=== PATIENT | female | born 1955 | race Caucasian/White ===

== ENCOUNTER → 2018-05-14 | Outpatient (REF) | payer OTHER ==
[2018-05-14 17:43] LABS: BASO % 0.4 % (0.0-1.0); EOS # 0.2 10^3/uL (0.0-0.50); EOS % 2.9 % (0.0-3.0); HEMOGLOBIN 13.3 g/dl (12.0-15.5); IMMATURE GRANULOCYTE % 0.5 % (0-3.0); LYMPH # 1.2 10^3/uL (1.5-4.5); LYMPH % 21.3 % (24.0-44.0); MEAN CORPUSCULAR HEMOGLOBIN 29.4 pg (27.0-33.0); MEAN CORPUSCULAR HGB CONC 33.3 g/dl (32.0-36.5); MEAN CORPUSCULAR VOLUME 88.3 fl (80.0-96.0); MONO # 0.7 10^3/uL (0.0-0.8); MONO % 12.5 % (0.0-5.0); NEUTROPHILS # 3.5 10^3/uL (1.8-7.7); NEUTROPHILS % 62.4 % (36.0-66.0); PLATELET COUNT, AUTOMATED 254 10^3/uL (150-450); RED BLOOD COUNT 4.53 10^6/uL (4.00-5.40); WHITE BLOOD COUNT 5.6 10^3/uL (4.0-10.0)
[2018-05-14 17:43] LABS: C REACTIVE PROTEIN QUANTITATIV 0.78 MG/DL (0.00-0.30)
[2018-05-14 18:41] LABS: ERYTHROCYTE SEDIMENTATION RATE 29 mm/hr (0-30)
== END ==
LOC: M LABDRAW1 16:30
DX: M25.471 Effusion, right ankle (principal)

== ENCOUNTER → 2018-09-08 | Outpatient (REF) | payer MEDICARE, OTHER ==
[~2018-09-08] MED LIST: AMLO10TA5 PO; ASPI1TAB PO; CENTCHW4 PO; PRAM0.5T7 PO; PRAV10TA4 PO; VENL150T24 PO
[2018-09-08 16:58] LABS: HEMOGLOBIN A1c 9.4 %
== END ==
LOC: M SFHCCLAY 11:24
PROVIDERS: ATTEND Family Medicine
DX: R73.9 Hyperglycemia, unspecified (principal)
CPT/HCPCS: 83036; G0463

== ENCOUNTER → 2018-09-16 | Outpatient (REF) | payer MEDICARE, OTHER ==
[2018-09-16 17:42] LABS: ALT/SGPT 32 U/L (12-78); BILIRUBIN,TOTAL 0.3 MG/DL (0.2-1.0); BLOOD UREA NITROGEN 14 MG/DL (7-18); CALCIUM LEVEL 9.3 MG/DL (8.8-10.2); CARBON DIOXIDE LEVEL 27 MEQ/L (21-32); CHLORIDE LEVEL 102 MEQ/L (98-107); CHOLESTEROL LEVEL 302 MG/DL (<200); CHOLESTEROL RISK RATIO 8.882 (<5); CREATININE FOR GFR 0.71 MG/DL (0.55-1.30); GLOMERULAR FILTRATION RATE > 60.0 (>45); GLUCOSE, FASTING 208 MG/DL (70-100); HDL CHOLESTEROL 34 MG/DL (>40); LDL CHOLESTEROL 190 MG/DL (<100); NON-HDL-C 268 MG/DL; POTASSIUM SERUM 4.5 MEQ/L (3.5-5.1); SODIUM LEVEL 138 MEQ/L (136-145); TOTAL PROTEIN 7.4 GM/DL (6.4-8.2); TRIGLYCERIDES LEVEL 389 MG/DL (<150)
[2018-09-16 19:07] LABS: MAU/CREAT RATIO 83.1 MCG/MG (0.0-30.0)
== END ==
LOC: M SFHCCLAY 10:30
PROVIDERS: ATTEND Family Medicine
DX: E11.9 Type 2 diabetes mellitus without complications (principal)
CPT/HCPCS: 80053; 80061; 82043; G0463

== ENCOUNTER → 2018-09-21 | Outpatient (REF) | payer MEDICARE, OTHER ==
[2018-09-21 11:44] LABS: HEMATOCRIT 42.1 % (36.0-47.0); HEMOGLOBIN 13.9 g/dl (12.0-15.5); MEAN CORPUSCULAR VOLUME 87.7 fl (80.0-96.0); PLATELET COUNT, AUTOMATED 230 10^3/uL (150-450); WHITE BLOOD COUNT 4.1 10^3/uL (4.0-10.0)
== END ==
LOC: M SFHCCLAY 08:49
PROVIDERS: ATTEND Family Medicine
DX: Z01.818 Encounter for other preprocedural examination (principal); M25.571 Pain in right ankle and joints of right foot
CPT/HCPCS: 85027; 93005; G0463

== ENCOUNTER → 2018-12-11 | Outpatient (REF) | payer MEDICARE, OTHER ==
[~2018-12-11] MED LIST changes: +ANUC25SU PR; -ASPI1TAB PO; +ASPI81TA26 PO; +METF10004 PO; +PRAM1TAB7 PO; +VENL100T PO
[2018-12-11 12:04] LABS: HEMOGLOBIN A1c 7.2 %
[2018-12-11 12:12] LABS: MAU/CREAT RATIO 173.5 MCG/MG (0.0-30.0)
[2018-12-11 12:23] LABS: BLOOD UREA NITROGEN 14 MG/DL (7-18); CALCIUM LEVEL 8.9 MG/DL (8.8-10.2); CARBON DIOXIDE LEVEL 28 MEQ/L (21-32); CHLORIDE LEVEL 108 MEQ/L (98-107); CREATININE FOR GFR 0.62 MG/DL (0.55-1.30); GLOMERULAR FILTRATION RATE > 60.0 (>45); GLUCOSE, FASTING 140 MG/DL (70-100); POTASSIUM SERUM 4.2 MEQ/L (3.5-5.1); SODIUM LEVEL 140 MEQ/L (136-145)
== END ==
LOC: M SFHCCLAY 08:06
PROVIDERS: ATTEND Family Medicine
DX: E11.9 Type 2 diabetes mellitus without complications (principal)

== ENCOUNTER → 2018-12-18 | Outpatient (CLI) | payer MEDICARE, OTHER ==
[~2018-12-18] MED LIST changes: +GASTROGRAFIN SOLUTION 30ML (Q9963) As Ordered ONE; +ISOVUE-370 76% 100ML VIAL (Q9967) As Ordered ONE
--- NOTE | 2018-12-18 16:38 | REP ---
HISTORY: History of bowel carcinoma. COMPARISON: There are no prior CTs for comparison. CT portion of PET/CT 11/05/2017 from an outside institution was reviewed. That examination is not an exact comparison to today's standard chest CT with contrast. CONTRAST: 100 mL Isovue-370 There is no mediastinal or hilar adenopathy. There are no pleural or pericardial effusions. The imaged upper abdomen is within normal limits. The imaged osseous structures are within normal limits. Evaluation of the lung murphy shows two 6 mm sized nodules in the left lung base which may or may not have been present on the prior examination; since the exam was not a standard chest CT, it cannot be stated with certainty. No additional abnormal nodules, masses or opacities are present. IMPRESSION: Two 6 mm sized nodules in the left lower lobe as described above. According to the revised Raina Society criteria these nodules represent category 4A lesions for which three month CT examination of the chest with contrast is recommended with consideration made for followup PET/CT if clinically relevant. Electronically Signed by Luis Dailey DO 12/24/2018 02:37 P
--- NOTE | 2018-12-18 16:47 | REP ---
HISTORY: Followup bowel carcinoma. COMPARISON: There are no priors for comparison. Noncontrast enhanced abdominal CT as part of a PET/CT protocol obtained from an outside institution 11/05/2017 was reviewed. Once again, there is diffuse low density throughout the hepatic parenchyma consistent with fatty infiltration of the liver. There are no enhancing hepatic masses. The gallbladder, spleen, pancreas, adrenal glands and kidneys are essentially unchanged. There are three nonenhancing left renal cysts, which have increased slightly in size from the prior exam, but none of them have septations or abnormal enhancing nodules. The abdominal aorta and periaortic regions are within normal limits. There is no significant change in the appearance of the bowel loops or their mesenteries. There is no free fluid or free air. There is no evidence of an intraabdominal mass or adenopathy. CT PELVIS: The bowel loops and their mesenteries are essentially unchanged. There is no mass or adenopathy. There is no free fluid or free air. Bone window technique throughout the exam shows the osseous structures to be stable and intact. IMPRESSION: 1. There is fatty infiltration of the liver. 2. Simple Bosniak class I left renal cyst. 2. No evidence of acute intra-abdominal or intrapelvic disease. Electronically Signed by Luis Dailey DO 12/24/2018 02:37 P
== END ==
LOC: M RAD 12:51
PROVIDERS: ATTEND Nurse Practitioner Family
DX: K76.0 Fatty (change of) liver, not elsewhere classified (principal); N28.1 Cyst of kidney, acquired; R91.8 Other nonspecific abnormal finding of lung field
CPT/HCPCS: 71260; 74177; Q9963; Q9967

== ENCOUNTER 2019-01-20 10:20 | Day surgery (SDC) | payer MEDICARE, OTHER ==
[~2019-01-20] VITALS: Ht 162.6 cm; Wt 71.1 kg
[~2019-01-20 10:20] MED LIST changes: -GASTROGRAFIN SOLUTION 30ML (Q9963) As Ordered ONE; -ISOVUE-370 76% 100ML VIAL (Q9967) As Ordered ONE; +LIDOCAINE 2% INJ 100 MG/5 ML SDV (FOR ANES.) As Ordered ONE; +NS 1,000 ML IV ONE; +PROPOFOL 200 MG/20 ML VIAL As Ordered ONE
[2019-01-20] MEDS ORDERED: PROPOFOL 200 MG/20 ML VIAL As Ordered ONE (11:10)
[2019-01-20] MEDS ORDERED: LIDOCAINE 2% INJ 100 MG/5 ML SDV (FOR ANES.) As Ordered ONE (11:10)
--- NOTE | 2019-01-20 11:20 | ROOR ---
Patient Name: Heaven Zarate Procedure Date: 01/20/2019 11:00 AM Date of : 1955 Age: 63 Room: [facility] Gender: Female Note Status: Finalized Procedure: Colonoscopy Indications: High risk colon cancer surveillance: Personal history of colon cancer Providers: Diego Rendon DO Referring MD: Daphney BELTRAN DO Requesting Provider: Medicines: Propofol per Anesthesia Complications: No immediate complications. Procedure: Pre-Anesthesia Assessment: - Prior to the procedure, a History and Physical was performed, and patient medications and allergies were reviewed. The patient is competent. The risks and benefits of the procedure and the sedation options and risks were discussed with the patient. All questions were answered and informed consent was obtained. Patient identification and proposed procedure were verified by the physician, the nurse, the anesthesiologist and the drinking water technician in the endoscopy suite. Mental Status Examination: alert and oriented. Airway Examination: normal oropharyngeal airway and neck mobility. Respiratory Examination: clear to auscultation. CV Examination: normal. Prophylactic Antibiotics: The patient does not require prophylactic antibiotics. Prior Anticoagulants: The patient has taken no previous anticoagulant or antiplatelet agents. ASA Grade Assessment: II - A patient with mild systemic disease. After reviewing the risks and benefits, the patient was deemed in satisfactory condition to undergo the procedure. The anesthesia plan was to use monitored anesthesia care (MAC). Immediately prior to administration of medications, the patient was re-assessed for adequacy to receive sedatives. The heart rate, respiratory rate, oxygen saturations, blood pressure, adequacy of pulmonary ventilation, and response to care were monitored throughout the procedure. The physical status of the patient was re-assessed after the procedure. The Colonoscope was introduced through the anus and advanced to the cecum, identified by appendiceal orifice and ileocecal valve. The colonoscopy was performed without difficulty. The patient tolerated the procedure well. Findings: Hemorrhoids were found on perianal exam. The exam was otherwise without abnormality on direct and retroflexion views. Impression: - Hemorrhoids found on perianal exam. - The examination was otherwise normal on direct and retroflexion views. - No specimens collected. Recommendation: - Patient has a contact number available for emergencies. The signs and symptoms of potential delayed complications were discussed with the patient. Return to normal activities tomorrow. Written discharge instructions were provided to the patient. - Repeat colonoscopy in 5 years for surveillance. - Return to my office PRN. Diego Rendon DO 01/20/2019 11:20:11 AM Electronically signed by Diego Rendon DO Number of Addenda: 0 Note Initiated On: 01/20/2019 11:00 AM Estimated Blood Loss: Estimated blood loss: none.
[2019-01-20 11:48] VITALS: BP 126/73
== END 2019-01-20 11:50 | disposition home or self-care (01) ==
LOC: M OPP 10:20
PROVIDERS: ATTEND Surgery
DX: Z85.038 Personal history of other malignant neoplasm of large intestine (principal); Z86.010 Personal history of colon polyps; K64.9 Unspecified hemorrhoids; Z79.891 Long term (current) use of opiate analgesic; Z79.899 Other long term (current) drug therapy; Z92.21 Personal history of antineoplastic chemotherapy; Z92.3 Personal history of irradiation

== ENCOUNTER → 2019-03-24 | Outpatient (CLI) | payer MEDICARE, OTHER ==
[~2019-03-24] MED LIST changes: +ISOVUE-370 76% 100ML VIAL (Q9967) As Ordered ONE; -LIDOCAINE 2% INJ 100 MG/5 ML SDV (FOR ANES.) As Ordered ONE; -NS 1,000 ML IV ONE; -PROPOFOL 200 MG/20 ML VIAL As Ordered ONE
--- NOTE | 2019-03-24 18:42 | REP ---
CT chest with IV contrast: History: Anal carcinoma. Abnormal CT study. Comparison CT study December 18, 2018. CT contrast dose: 75 mL of intravenous Isovue [address] findings: There are three to four nodular densities in the left lower lobe posterolaterally, the largest of which measures 7 mm in greatest diameter today. This has enlarged somewhat since the December 18, 2018 study. There is a stable 6 mm nodule in the left lower lobe. Adjacent to this, there is a 4 mm nodule which is not apparent on the December 18, 2018 study and appears to be new. No other pulmonary nodule is appreciated. No hilar or mediastinal mass or adenopathy is seen. Vascular calcifications noted in the coronary artery distribution as before. There is moderate diffuse fatty infiltration of the liver. There are two left renal cysts visible. No adrenal lesion is seen. 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 Impression: There are three to four nodular densities in the left lower lobe. One of these is 7 mm in greatest diameter and appears larger than on the prior study. There is evidence of a new 4 mm nodule in the left lower lobe. These are of uncertain significance. Electronically Signed by Rafat Pisano MD 03/24/2019 09:13 P
== END ==
LOC: M RAD 11:54
PROVIDERS: ATTEND Nurse Practitioner Family
DX: R91.8 Other nonspecific abnormal finding of lung field (principal); Z85.048 Personal history of other malignant neoplasm of rectum, rectosigmoid junction, and anus
CPT/HCPCS: 36415; 71260; 80053; Q9967

== ENCOUNTER → 2019-04-06 | Outpatient (CLI) | payer MEDICARE, OTHER ==
[~2019-04-06] MED LIST changes: -ISOVUE-370 76% 100ML VIAL (Q9967) As Ordered ONE
--- NOTE | 2019-04-07 15:58 | REP ---
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 Abdomen, pelvis and upper thighs: The uptake in the anus appears to have increased. The standard uptake value today is 5.3. The standard uptake on 11/05/2017 there was 4.0. Additionally, there is diffuse soft tissue uptake in tissues anterior lateral lateral to the anus , not present previously. The standard uptake value in these para-anal areas is 3.7. This uptake is nonspecific and could be related to radiation therapy or could be physiologic. I note that the uptake in the colon diffusely is increased from prior studies. This is likely physiologic from muscular activity after radiotracer injection. On the prior studies there was a pararectal lymph node on the left. This lymph node is no longer identified on the study today. Uptake in the liver is again heterogeneous. This is not unusual. There are no focal hyper metabolic foci. This is unchanged. There are no other abdominal, pelvic or retroperitoneal foci, as previously. There are left renal cysts. This is unchanged. There is hepatic steatosis, unchanged. The stranding identified in the presacral soft tissues previously is less apparent today. There is no sacral hypermetabolic uptake. Chest: There is a borderline hypermetabolic focus in the left breast medial to the nipple with a standard uptake value of 2.3. This has not been present on the comparison studies . Correlation with mammography is recommended. There are no hypermetabolic foci in the chest, otherwise . Specifically there is no hypermetabolic uptake in the right hilus. Neck and supraclavicular areas: There are no hypermetabolic foci. This is unchanged. Impression: There is diffuse increased radiolabeling of the entire colon as a change from the prior studies. This is likely physiologic from muscular activity after radiotracer infusion. There is hypermetabolic uptake in the anus. The standard uptake value today is 5.3 and was 4.0 on 11/05/2017. Additionally, there is borderline hypermetabolic uptake in perianal soft tissues as an interval change. This is nonspecific and could be physiologic or could be related to radiation. However, tumor extension is not entirely discounted and attention to this finding on follow up studies is recommended. The left perianal lymph node identified previously has involuted and is no longer identified. There is a new borderline hypermetabolic focus in the left breast medial to the nipple with a standard uptake value of 2.3, not present previously. Correlation with mammography is recommended. The study is performed with 9.04 mCi of F 18 FDG. Electronically Signed by Diego Arroyo MD 04/07/2019 03:49 P
== END ==
LOC: M PLARAD 10:18
PROVIDERS: ATTEND Internal Medicine
DX: R91.8 Other nonspecific abnormal finding of lung field (principal); Z85.048 Personal history of other malignant neoplasm of rectum, rectosigmoid junction, and anus
CPT/HCPCS: 78815; A9552

== ENCOUNTER → 2019-04-20 | Outpatient (REF) | payer MEDICARE, OTHER ==
[~2019-04-20] MED LIST changes: +[UNRECOGNIZED DRUG - REMARK]
== END ==
LOC: M SFHCCLAY 10:36
PROVIDERS: ATTEND Family Medicine
DX: E11.9 Type 2 diabetes mellitus without complications (principal); Z53.8 Procedure and treatment not carried out for other reasons

== ENCOUNTER → 2019-05-04 | Outpatient (CLI) | payer MEDICARE, OTHER ==
[~2019-05-04] MED LIST changes: +LIDOCAINE 1% MDV 20ML VIAL As Ordered ONE
[2019-05-04 13:52] VITALS: BP 150/81
--- NOTE | 2019-05-04 15:41 | REP ---
POSTBIOPSY MAMMOGRAM LEFT BREAST: ML and CC views of the left breast performed following ultrasound guided biopsy of a suspicious appearing nodule in the lower inner left breast. Correlation made with prior mammogram from [facility] 04/14/2019. Metallic biopsy clip is seen in the nodule. Electronically Signed by Diego Bolden MD 05/04/2019 04:26 P
--- NOTE | 2019-05-04 15:52 | REP ---
ULTRASOUND LEFT BREAST: Real-time sonographic evaluation of the left breast performed to evaluate a nodule seen on recent mammogram at [facility] which was referred for ultrasound guided biopsy. There is a lobulated hypoechoic solid mass at 8 o'clock in the left breast corresponding to the mammographic abnormality. It measures 1.4 x 1.0 x 1.4 cm. Ultrasound guided biopsy will be performed. Electronically Signed by Diego Bolden MD 05/04/2019 04:26 P
--- NOTE | 2019-05-04 16:35 | REP ---
Ultrasound-guided left breast biopsy. The procedure was performed by SABINE Espinal, under the direct supervision of Dr. Bolden. The patient has a history of a lobulated hypoechoic solid mass at the 8 o'clock position measuring 1.4 x 1.0 x 1.4 cm. The risks and benefits of the procedure were explained to the patient and informed consent was obtained both verbally and written. Directly prior to the start of the procedure, a formal timeout was completed in the procedure room. The left breast mass was localized using ultrasound guidance. The skin was prepped and draped in a sterile fashion. 18 ml of 1% lidocaine was used as a local anesthetic. Using ultrasound guidance a 13-gauge suction assisted Mammotome needle was inserted and 6 core biopsy samples were obtained. A marker clip was placed at the biopsy site. The patient tolerated the procedure well and there were no immediate complications. After the appropriate monitored convalescence the patient was discharged from the department. Reviewed by SABINE Zamudio 05/04/2019 03:57 P Electronically Signed by Diego Bolden MD 05/04/2019 04:26 P
== END ==
LOC: M IRPRO 12:14
DX: C50.912 Malignant neoplasm of unspecified site of left female breast (principal)

== ENCOUNTER → 2019-06-22 | Outpatient (REF) | payer MEDICARE, OTHER ==
[~2019-06-22] MED LIST changes: -LIDOCAINE 1% MDV 20ML VIAL As Ordered ONE
[2019-06-22 16:19] LABS: BLOOD UREA NITROGEN 12 MG/DL (7-18); CALCIUM LEVEL 9.7 MG/DL (8.8-10.2); CARBON DIOXIDE LEVEL 28 MEQ/L (21-32); CHLORIDE LEVEL 104 MEQ/L (98-107); CREATININE FOR GFR 0.72 MG/DL (0.55-1.30); GLOMERULAR FILTRATION RATE > 60.0 (>45); GLUCOSE, FASTING 131 MG/DL (70-100); POTASSIUM SERUM 4.1 MEQ/L (3.5-5.1); SODIUM LEVEL 139 MEQ/L (136-145)
== END ==
LOC: M SFHCCLAY 10:07
PROVIDERS: ATTEND Family Medicine
DX: Z01.818 Encounter for other preprocedural examination (principal); I11.9 Hypertensive heart disease without heart failure; Z23 Encounter for immunization
CPT/HCPCS: 80048; 90670; 90682; 93005; G0463

== ENCOUNTER → 2019-07-12 | Outpatient (CLI) | payer MEDICARE, OTHER ==
[~2019-07-12] MED LIST changes: +PROHANCE 279.3MG/ML 15ML VIAL (A9576) As Ordered ONE
--- NOTE | 2019-07-13 10:02 | REP ---
MRI BILATERAL BREASTS WITH AND WITHOUT CONTRAST: HISTORY: Left breast cancer. COMPARISON: Mammogram 04/14/2019, 04/16/2019 and ultrasound 05/04/2019. TECHNIQUE: Multiple sequences obtained in the axial, coronal, and sagittal planes prior to and following the intravenous administration of 14 mL ProHance. Images are evaluated in the [employer] software including dynamic post IV gadolinium axial T1 fat sat images, subtraction images, color overlay images and MIP reconstruction images. There is mild to moderate fibroglandular tissue bilaterally. There is very mild background parenchymal enhancement. No significant cystic changes are seen. No significantly enlarged lymph nodes are seen in either axillary region. In the lower inner left breast there is a spiculated mass which is hypointense on T1-weighted images and hyperintense on T2-weighted images. There is type 3 enhancement with rapid enhancement and slow washout. Margins are spiculated. Measurements are approximately 1.6 x 1.7 x 1.9 cm. It is located approximately 6 cm in from the nipple. There is mild internal artifact from the biopsy clip. No other suspicious mass or morphologic abnormality is seen. IMPRESSION: BIRADS category 6 known left breast cancer. Spiculated left breast mass inferomedially demonstrates suspicious enhancement and irregular margins consistent with diagnosis of infiltrating ductal carcinoma, maximum diameter of the mass is 1.9 cm and it is located approximately 6 cm from the nipple. No other evidence of enhancing suspicious mass or morphologic abnormality. No adenopathy in either axillary region. Electronically Signed by Diego Bolden MD 07/13/2019 12:01 P
== END ==
LOC: M RAD 15:36
PROVIDERS: ATTEND Nurse Practitioner Family
DX: C50.912 Malignant neoplasm of unspecified site of left female breast (principal); Z17.0 Estrogen receptor positive status [ER+]; Z15.01 Genetic susceptibility to malignant neoplasm of breast; Z15.09 Genetic susceptibility to other malignant neoplasm
CPT/HCPCS: A9576; C8908

== ENCOUNTER → 2019-09-20 | Outpatient (REF) | payer MEDICARE, OTHER ==
[~2019-09-20] MED LIST changes: -PROHANCE 279.3MG/ML 15ML VIAL (A9576) As Ordered ONE
[2019-09-20 13:19] LABS: HEMATOCRIT 34.5 % (36.0-47.0); HEMOGLOBIN 10.8 g/dl (12.0-15.5); MEAN CORPUSCULAR HEMOGLOBIN 27.8 pg (27.0-33.0); MEAN CORPUSCULAR HGB CONC 31.3 g/dl (32.0-36.5); MEAN CORPUSCULAR VOLUME 88.7 fl (80.0-96.0); PLATELET COUNT, AUTOMATED 163 10^3/uL (150-450); RED BLOOD COUNT 3.89 10^6/uL (4.00-5.40)
[2019-09-20 14:18] LABS: LYMPHOCYTES 9 % (16-44); METAMYELOCYTES 2 % (0-0); MONOCYTES 9 % (0-5); NEUTROPHILS 77 % (28-66); PLATELET ESTIMATE NORMAL (NORMAL)
[2019-09-20 14:19] LABS: ANISOCYTOSIS 1+; POLYCHROMASIA 1+
== END ==
LOC: M SFHCCLAY 08:24
PROVIDERS: ATTEND Family Medicine
DX: K52.9 Noninfective gastroenteritis and colitis, unspecified (principal)
CPT/HCPCS: 85025; G0463

== ENCOUNTER → 2019-09-27 | Outpatient (REF) | payer MEDICARE, OTHER ==
[2019-09-27 16:20] LABS: BASO # 0.1 10^3/uL (0.0-0.2); BASO % 0.8 % (0.0-1.0); EOS % 0.2 % (0.0-3.0); HEMATOCRIT 36.4 % (36.0-47.0); HEMOGLOBIN 11.7 g/dl (12.0-15.5); LYMPH # 1.4 10^3/uL (1.5-5.0); MEAN CORPUSCULAR HEMOGLOBIN 28.6 pg (27.0-33.0); MEAN CORPUSCULAR HGB CONC 32.1 g/dl (32.0-36.5); MONO # 1.1 10^3/uL (0.0-0.8); NEUTROPHILS # 6.1 10^3/uL (1.5-8.5); NEUTROPHILS % 69.2 % (36.0-66.0); PLATELET COUNT, AUTOMATED 379 10^3/uL (150-450); RED BLOOD COUNT 4.09 10^6/uL (4.00-5.40); WHITE BLOOD COUNT 8.8 10^3/uL (4.0-10.0)
== END ==
LOC: M SFHCCLAY 11:50
PROVIDERS: ATTEND Family Medicine
DX: D72.829 Elevated white blood cell count, unspecified (principal)

== ENCOUNTER → 2019-10-28 | Outpatient (CLI) | payer MEDICARE, OTHER ==
--- NOTE | 2019-11-17 14:19 | DEXA ---
AP SPINE L1 - L4 1.171 -0.2 1.4 LT FEMUR TOTAL 0.959 -0.4 0.9 LT NECK 0.882 -1.1 0.4 RT FEMUR TOTAL 1.016 0.1 1.3 RT NECK 1.021 -0.1 1.4 TOTAL BODY TOTAL OTHER COMMENTS: Normal bone densitometry of the spine. Normal bone densitometry of the right hip. There is low bone density of the left hip. FOLLOW-UP: Recommendation for the next bone density exam: 2 years. SIMONE
== END ==
LOC: M WHC 12:57
PROVIDERS: ATTEND Internal Medicine Medical Oncology
DX: C50.912 Malignant neoplasm of unspecified site of left female breast (principal); Z17.0 Estrogen receptor positive status [ER+]; M85.852 Other specified disorders of bone density and structure, left thigh

== ENCOUNTER → 2019-12-06 | Outpatient (REF) | payer MEDICARE, OTHER ==
[2019-12-06 11:34] LABS: BASO % 0.9 % (0.0-1.0); EOS # 0.1 10^3/uL (0.0-0.5); EOS % 2.3 % (0.0-3.0); HEMATOCRIT 39.6 % (36.0-47.0); HEMOGLOBIN 13.2 g/dl (12.0-15.5); LYMPH # 1.2 10^3/uL (1.5-5.0); LYMPH % 27.4 % (24.0-44.0); MEAN CORPUSCULAR HEMOGLOBIN 28.4 pg (27.0-33.0); MEAN CORPUSCULAR HGB CONC 33.3 g/dl (32.0-36.5); MEAN CORPUSCULAR VOLUME 85.2 fl (80.0-96.0); MONO # 0.6 10^3/uL (0.0-0.8); MONO % 12.9 % (0.0-5.0); NEUTROPHILS # 2.5 10^3/uL (1.5-8.5); NEUTROPHILS % 56.3 % (36.0-66.0); PLATELET COUNT, AUTOMATED 264 10^3/uL (150-450); RED BLOOD COUNT 4.65 10^6/uL (4.00-5.40); WHITE BLOOD COUNT 4.4 10^3/uL (4.0-10.0)
[2019-12-06 11:41] LABS: ALBUMIN 3.9 GM/DL (3.2-5.2); ALT/SGPT 25 U/L (12-78); BILIRUBIN,TOTAL 0.3 MG/DL (0.2-1.0); BLOOD UREA NITROGEN 14 MG/DL (7-18); CALCIUM LEVEL 9.4 MG/DL (8.8-10.2); CARBON DIOXIDE LEVEL 28 MEQ/L (21-32); CHLORIDE LEVEL 102 MEQ/L (98-107); CREATININE FOR GFR 0.74 MG/DL (0.55-1.30); GLOMERULAR FILTRATION RATE > 60.0 (>45); GLUCOSE, FASTING 263 MG/DL (70-100); SODIUM LEVEL 136 MEQ/L (136-145); TOTAL PROTEIN 7.2 GM/DL (6.4-8.2)
== END ==
LOC: M LABDRAWC 11:08
PROVIDERS: ATTEND Nurse Practitioner Family
DX: C50.912 Malignant neoplasm of unspecified site of left female breast (principal)

== ENCOUNTER → 2020-01-25 | Outpatient (CLI) | payer MEDICARE, OTHER | LOC: M LABSMTC 11:41 | PROVIDERS: ATTEND Anesthesiology | DX: Z03.818 Encounter for observation for suspected exposure to other biological agents ruled out (principal) | CPT/HCPCS: C9803; U0003 ==

== ENCOUNTER → 2020-02-10 | Outpatient (CLI) | payer MEDICARE, OTHER ==
[~2020-02-10] MED LIST changes: +LETR2.5T2 PO
== END ==
LOC: M LABSMTC 10:24
PROVIDERS: ATTEND Anesthesiology
DX: Z03.818 Encounter for observation for suspected exposure to other biological agents ruled out (principal); Z11.59 Encounter for screening for other viral diseases
CPT/HCPCS: C9803; U0003

== ENCOUNTER 2020-02-14 13:57 | Day surgery (SDC) | payer MEDICARE, OTHER ==
[~2020-02-14] VITALS: Ht 162.6 cm; Wt 68.0 kg
[~2020-02-14 13:57] MED LIST changes: -AMLO10TA5 PO; +AMLO1TAB25 PO; +NS 1,000 ML IV ONE
[2020-02-14] MEDS ORDERED: propofoL 200 MG/20 ML VIAL As Ordered ONE (14:45)
[2020-02-14] MEDS ORDERED: LIDOCAINE 2% 100MG/5ML SDV (FOR ANES.) As Ordered ONE (14:45)
[2020-02-14] MEDS ORDERED: fentaNYL 100 MCG/2 ML INJECTION (J3010) As Ordered ONE (15:08)
[2020-02-14] MEDS ORDERED: ePHEDrine SULFATE 25 MG/5 ML(5MG/ML) SYRINGE As Ordered ONE (15:24)
--- NOTE | 2020-02-14 15:49 | ROOR ---
Patient Name: Heaven Zarate Procedure Date: 02/14/2020 3:06 PM Date of : 1955 Age: 64 Room: [facility] Gender: Female Note Status: Finalized Procedure: Upper GI endoscopy Indications: Epigastric abdominal pain Providers: Matteo Jaramillo MD Referring MD: Daphney BELTRAN DO Requesting Provider: Medicines: Monitored Anesthesia Care Complications: No immediate complications. Procedure: Pre-Anesthesia Assessment: - Prior to the procedure, a History and Physical was performed, and patient medications and allergies were reviewed. The patient is competent. The risks and benefits of the procedure and the sedation options and risks were discussed with the patient. All questions were answered and informed consent was obtained. Patient identification and proposed procedure were verified by the physician, the nurse and the anesthesiologist in the procedure room. Mental Status Examination: alert and oriented. Airway Examination: normal oropharyngeal airway and neck mobility. Respiratory Examination: clear to auscultation. CV Examination: normal. Prophylactic Antibiotics: The patient does not require prophylactic antibiotics. Prior Anticoagulants: The patient has taken no previous anticoagulant or antiplatelet agents. ASA Grade Assessment: II - A patient with mild systemic disease. After reviewing the risks and benefits, the patient was deemed in satisfactory condition to undergo the procedure. The anesthesia plan was to use monitored anesthesia care (MAC). Immediately prior to administration of medications, the patient was re-assessed for adequacy to receive sedatives. The heart rate, respiratory rate, oxygen saturations, blood pressure, adequacy of pulmonary ventilation, and response to care were monitored throughout the procedure. The physical status of the patient was re-assessed after the procedure. The Endoscope was introduced through the mouth, and advanced to the second part of duodenum. The upper GI endoscopy was accomplished without difficulty. The patient tolerated the procedure well. Findings: The examined esophagus was normal. The Z-line was regular and was found 38 cm from the incisors. Scattered moderate inflammation characterized by erosions, erythema, friability and granularity was found in the gastric body and in the gastric antrum. Biopsies were taken with a cold forceps for Helicobacter pylori testing. Verification of patient identification for the specimen was done by the physician and nurse using the patient's name, date and medical record number. Estimated blood loss was minimal. The duodenal bulb and second portion of the duodenum were normal. Biopsies for histology were taken with a cold forceps for evaluation of celiac disease. Impression: - Normal esophagus. - Z-line regular, 38 cm from the incisors. - Gastritis. Biopsied. - Normal duodenal bulb and second portion of the duodenum. Biopsied. Recommendation: - Patient has a contact number available for emergencies. The signs and symptoms of potential delayed complications were discussed with the patient. Return to normal activities tomorrow. Written discharge instructions were provided to the patient. - Resume previous diet. - Continue present medications. - Await pathology results. - Telephone GI clinic for pathology results in 2 weeks. - Return to primary care physician. Matteo Jaramillo MD Matteo Jaramillo MD 02/14/2020 3:49:20 PM Electronically signed by Matteo Jaramillo MD Number of Addenda: 0 Note Initiated On: 02/14/2020 3:06 PM Estimated Blood Loss: Estimated blood loss was minimal.
--- NOTE | 2020-02-14 15:54 | ROOR ---
Patient Name: Heaven Zarate Procedure Date: 02/14/2020 3:08 PM Date of : 1955 Age: 64 Room: [facility] Gender: Female Note Status: Finalized Procedure: Colonoscopy Indications: High risk colon cancer surveillance: Personal history of colon cancer Providers: Matteo Jaramillo MD Referring MD: Daphney BELTRAN DO Requesting Provider: Medicines: Monitored Anesthesia Care Complications: No immediate complications. Procedure: Pre-Anesthesia Assessment: - Prior to the procedure, a History and Physical was performed, and patient medications and allergies were reviewed. The patient is competent. The risks and benefits of the procedure and the sedation options and risks were discussed with the patient. All questions were answered and informed consent was obtained. Patient identification and proposed procedure were verified by the physician, the nurse and the anesthesiologist in the procedure room. Mental Status Examination: alert and oriented. Airway Examination: normal oropharyngeal airway and neck mobility. Respiratory Examination: clear to auscultation. CV Examination: normal. Prophylactic Antibiotics: The patient does not require prophylactic antibiotics. Prior Anticoagulants: The patient has taken no previous anticoagulant or antiplatelet agents. ASA Grade Assessment: II - A patient with mild systemic disease. After reviewing the risks and benefits, the patient was deemed in satisfactory condition to undergo the procedure. The anesthesia plan was to use monitored anesthesia care (MAC). Immediately prior to administration of medications, the patient was re-assessed for adequacy to receive sedatives. The heart rate, respiratory rate, oxygen saturations, blood pressure, adequacy of pulmonary ventilation, and response to care were monitored throughout the procedure. The physical status of the patient was re-assessed after the procedure. The Colonoscope was introduced through the anus and advanced to the terminal ileum, with identification of the appendiceal orifice and IC valve. The colonoscopy was performed without difficulty. The patient tolerated the procedure well. The quality of the bowel preparation was good. The terminal ileum, ileocecal valve, appendiceal orifice, and rectum were photographed. Scope insertion time was 5 minutes. Scope withdrawal time was 10 minutes. The total duration of the procedure was 15 minutes. Findings: Hemorrhoids were found on perianal exam. The colon (entire examined portion) was moderately tortuous. Advancing the scope required using manual pressure. A scattered area of mildly erythematous mucosa was found in the distal rectum. 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 A patchy area of granular mucosa was found in the distal rectum. Biopsies were taken with a cold forceps for histology. Verification of patient identification for the specimen was done by the physician and nurse using the patient's name, date and medical record number. Non-bleeding external and internal hemorrhoids were found during endoscopy. The hemorrhoids were large. Retroflexion in the rectum was not performed due to anatomy. Impression: - Hemorrhoids found on perianal exam. - Tortuous colon. - Erythematous mucosa in the distal rectum. - Granularity in the distal rectum. Biopsied. - Non-bleeding external and internal hemorrhoids. Recommendation: - Patient has a contact number available for emergencies. The signs and symptoms of potential delayed complications were discussed with the patient. Return to normal activities tomorrow. Written discharge instructions were provided to the patient. - High fiber diet. - Continue present medications. - Preparation H suppository: Insert rectally daily for 5 days. - Await pathology results. - Repeat colonoscopy in 5 years for surveillance based on personal history of colon cancer. - Telephone GI clinic for pathology results in 2 weeks. - Return to primary care physician. Matteo Jaramillo MD Matteo Jaramillo MD 02/14/2020 3:54:48 PM Electronically signed by Matteo Jaramillo MD Number of Addenda: 0 Note Initiated On: 02/14/2020 3:08 PM Estimated Blood Loss: Estimated blood loss was minimal.
[2020-02-14 16:24] VITALS: BP 166/86
== END 2020-02-14 16:26 | disposition home or self-care (01) ==
LOC: M OPP 13:57
PROVIDERS: ATTEND Internal Medicine Gastroenterology
DX: Z85.048 Personal history of other malignant neoplasm of rectum, rectosigmoid junction, and anus (principal); K64.8 Other hemorrhoids; K62.7 Radiation proctitis; R10.13 Epigastric pain; K31.89 Other diseases of stomach and duodenum; E11.9 Type 2 diabetes mellitus without complications; I10 Essential (primary) hypertension; Z79.82 Long term (current) use of aspirin; Z79.84 Long term (current) use of oral hypoglycemic drugs; Z79.899 Other long term (current) drug therapy; Z85.3 Personal history of malignant neoplasm of breast; Z92.21 Personal history of antineoplastic chemotherapy; Z08 Encounter for follow-up examination after completed treatment for malignant neoplasm
CPT/HCPCS: 43239; 45380; 88305; J3010

== ENCOUNTER → 2020-07-10 | Outpatient (REF) | payer MEDICARE, OTHER ==
[~2020-07-10] MED LIST changes: -NS 1,000 ML IV ONE
[2020-07-10 11:25] LABS: BASO % 0.6 % (0.0-1.0); EOS # 0.1 10^3/uL (0.0-0.5); EOS % 2.2 % (0.0-3.0); HEMATOCRIT 40.6 % (36.0-47.0); HEMOGLOBIN 12.9 g/dl (12.0-15.5); LYMPH # 1.5 10^3/uL (1.5-5.0); LYMPH % 29.4 % (24.0-44.0); MEAN CORPUSCULAR HEMOGLOBIN 27.6 pg (27.0-33.0); MEAN CORPUSCULAR HGB CONC 31.8 g/dl (32.0-36.5); MEAN CORPUSCULAR VOLUME 86.9 fl (80.0-96.0); MONO # 0.6 10^3/uL (0.0-0.8); MONO % 12.6 % (0.0-5.0); NEUTROPHILS # 2.8 10^3/uL (1.5-8.5); PLATELET COUNT, AUTOMATED 266 10^3/uL (150-450); RED BLOOD COUNT 4.67 10^6/uL (4.00-5.40); WHITE BLOOD COUNT 5.1 10^3/uL (4.0-10.0)
[2020-07-10 12:04] LABS: HEMOGLOBIN A1c 6.9 %
[2020-07-10 12:25] LABS: ALT/SGPT 21 U/L (12-78); BILIRUBIN,TOTAL 0.4 MG/DL (0.2-1.0); BLOOD UREA NITROGEN 14 MG/DL (7-18); CALCIUM LEVEL 9.4 MG/DL (8.8-10.2); CARBON DIOXIDE LEVEL 28 MEQ/L (21-32); CHLORIDE LEVEL 105 MEQ/L (98-107); CHOLESTEROL LEVEL 202 MG/DL (<200); CHOLESTEROL RISK RATIO 4.391 (<5); FREE T4 1.07 NG/DL (0.76-1.46); GLOMERULAR FILTRATION RATE > 60.0 (>45); GLUCOSE, FASTING 137 MG/DL (70-100); HDL CHOLESTEROL 46 MG/DL (>40); LDL CHOLESTEROL 100 MG/DL (<100); NON-HDL-C 156 MG/DL; POTASSIUM SERUM 3.9 MEQ/L (3.5-5.1); SODIUM LEVEL 138 MEQ/L (136-145); T UPTAKE 31 % (30-39); THYROXINE (T4) 9.6 UG/DL (4.5-12.0); TOTAL PROTEIN 7.6 GM/DL (6.4-8.2); TRIGLYCERIDES LEVEL 280 MG/DL (<150)
== END ==
LOC: M LABDRAWC 11:16
PROVIDERS: ATTEND Psychiatry & Neurology Neurology
DX: E11.9 Type 2 diabetes mellitus without complications (principal); E78.5 Hyperlipidemia, unspecified; E07.9 Disorder of thyroid, unspecified

== ENCOUNTER → 2021-02-01 | Outpatient (REF) | payer MEDICARE, OTHER ==
[2021-02-01 12:07] LABS: HEMATOCRIT 41.4 % (36.0-47.0); HEMOGLOBIN 13.6 g/dl (12.0-15.5); MEAN CORPUSCULAR HEMOGLOBIN 28.7 pg (27.0-33.0); MEAN CORPUSCULAR HGB CONC 32.9 g/dl (32.0-36.5); MEAN CORPUSCULAR VOLUME 87.3 fl (80.0-96.0); PLATELET COUNT, AUTOMATED 314 10^3/uL (150-450); RED BLOOD COUNT 4.74 10^6/uL (4.00-5.40)
[2021-02-01 12:50] LABS: BLOOD UREA NITROGEN 13 MG/DL (7-18); CALCIUM LEVEL 9.9 MG/DL (8.8-10.2); CARBON DIOXIDE LEVEL 29 MEQ/L (21-32); CHLORIDE LEVEL 103 MEQ/L (98-107); CHOLESTEROL LEVEL 209 MG/DL (<200); CHOLESTEROL RISK RATIO 4.976 (<5); CREATININE FOR GFR 0.65 MG/DL (0.55-1.30); GLOMERULAR FILTRATION RATE > 60.0 (>45); GLUCOSE, FASTING 177 MG/DL (70-100); HDL CHOLESTEROL 42 MG/DL (>40); LDL CHOLESTEROL 96 MG/DL (<100); NON-HDL-C 167 MG/DL; POTASSIUM SERUM 4.4 MEQ/L (3.5-5.1); SODIUM LEVEL 139 MEQ/L (136-145); TRIGLYCERIDES LEVEL 354 MG/DL (<150)
[2021-02-01 13:30] LABS: HEMOGLOBIN A1c 7.9 %
== END ==
LOC: M SFHCCLAY 09:11
PROVIDERS: ATTEND Family Medicine
DX: G25.81 Restless legs syndrome (principal); E11.9 Type 2 diabetes mellitus without complications

== ENCOUNTER 2021-03-06 09:58 | Emergency (ER) | payer MEDICARE, OTHER ==
[~2021-03-06] VITALS: Ht 162.6 cm; Wt 70.5 kg
[2021-03-06 11:30] LABS: BASO % 0.3 % (0.0-1.0); EOS # 0.1 10^3/uL (0.0-0.5); HEMATOCRIT 41.2 % (36.0-47.0); HEMOGLOBIN 13.7 g/dl (12.0-15.5); LYMPH # 1.3 10^3/uL (1.5-5.0); LYMPH % 16.7 % (24.0-44.0); MEAN CORPUSCULAR HEMOGLOBIN 28.4 pg (27.0-33.0); MEAN CORPUSCULAR HGB CONC 33.3 g/dl (32.0-36.5); MEAN CORPUSCULAR VOLUME 85.3 fl (80.0-96.0); MONO # 0.9 10^3/uL (0.0-0.8); MONO % 11.4 % (2.0-8.0); NEUTROPHILS # 5.6 10^3/uL (1.5-8.5); NEUTROPHILS % 70.1 % (36.0-66.0); PLATELET COUNT, AUTOMATED 306 10^3/uL (150-450); RED BLOOD COUNT 4.83 10^6/uL (4.00-5.40)
[2021-03-06] MEDS ORDERED: NS 1,000 ML IV ONE (11:45)
[2021-03-06] MEDS ORDERED: MORPHINE 4 MG/ML 1ML VIAL/SYRINGE (J2270) IV ONE (11:45)
[2021-03-06 11:59] LABS: ALBUMIN 4.2 GM/DL (3.2-5.2); ALT/SGPT 34 U/L (12-78); BILIRUBIN,DIRECT 0.1 MG/DL (0.0-0.2); BILIRUBIN,TOTAL 0.5 MG/DL (0.2-1.0); BLOOD UREA NITROGEN 12 MG/DL (7-18); CALCIUM LEVEL 9.7 MG/DL (8.8-10.2); CARBON DIOXIDE LEVEL 26 MEQ/L (21-32); CHLORIDE LEVEL 105 MEQ/L (98-107); CREATININE FOR GFR 0.74 MG/DL (0.55-1.30); GLOMERULAR FILTRATION RATE > 60.0 (>45); GLUCOSE, FASTING 179 MG/DL (70-100); LIPASE 182 U/L (73-393); POTASSIUM SERUM 4.1 MEQ/L (3.5-5.1); SODIUM LEVEL 138 MEQ/L (136-145); TOTAL PROTEIN 7.9 GM/DL (6.4-8.2)
[2021-03-06] MEDS ORDERED: ISOVUE-370 76% 100ML VIAL As Ordered ONE (12:13)
--- NOTE | 2021-03-06 12:56 | REP ---
INDICATION: left sided abd pain. COMPARISON: Comparison is made with outside prior CT study from September 13, 2019.. TECHNIQUE: Helical scanning was acquired and 4 mm axial images are re-formatted. Coronal and sagittal MPR images were generated and reviewed. The contrast enhancement dose is 100 mL of intravenous Isovue 370. FINDINGS: Preliminary digital hydrant setter radiograph is noncontributory. Normal bowel gas pattern. Bilateral breast augmentation implants are seen at the top of the imaging field of view. There is no evidence of pleural effusion on either side. The lung bases are clear on axial images. There is moderate diffuse fatty infiltration of the liver. No focal liver mass lesion is seen. No abnormality is noted in the gallbladder. The spleen is unremarkable. There is left coronary artery vascular calcification. Normal adrenal glands are seen. There are renal cortical cysts affecting the left kidney which are unchanged from the comparison CT study of September 13, 2019. No hydronephrosis or renal mass is seen. No calculus is apparent. There is a0 peripherally calcified lesion adjacent to the splenic tail consistent with a splenic artery aneurysm. This measures 1.5 cm in greatest diameter. It is unchanged from September 13, 2019 CT as well. No retroperitoneal mass or adenopathy is seen. No pelvic mass or adenopathy is appreciated. No uterine or ovarian abnormality is seen. Small and large bowel loops are unremarkable in the abdomen and pelvis. Normal appendix is seen in the right lower quadrant. There is a subtle zone of inflammation or edema in the pericolonic fat anteriorly adjacent to the mid descending colon. There is no mural thickening but there is an adjacent anteriorly directed descending colonic diverticulum. Findings are compatible with very mild or early diverticulitis. no abscess or free air is seen. No abnormal fluid collection. IMPRESSION: 9 there is some pericolonic fat streaking adjacent to the mid descending colon and within adjacent diverticulum consistent with early diverticulitis. No abscess or free air. There are stable left renal cysts. There is moderate diffuse fatty infiltration of the liver. Otherwise no active abdominal or pelvic disease. Patient is status post bilateral mastectomy and augmentation. <Electronically signed by Andi Pisano > 03/06/21 [id number]
[2021-03-06] MEDS ORDERED: CIPROFLOXACIN 500MG TABLET PO ONE (13:05)
[2021-03-06] MEDS ORDERED: metroNIDAZOLE (FLAGYL) 500MG TABLET PO ONE (13:05)
[2021-03-06] MEDS ORDERED: ONDA4TAB6 PO (13:06)
[2021-03-06] MEDS ORDERED: CIPR-249 PO (13:06)
[2021-03-06] MEDS ORDERED: FLAG500T PO (13:06)
[2021-03-06 13:16] VITALS: BP 147/70
== END 2021-03-06 13:17 | disposition home or self-care (01) ==
LOC: M ED 09:58
DX: K57.32 Diverticulitis of large intestine without perforation or abscess without bleeding (principal); N28.1 Cyst of kidney, acquired; K76.0 Fatty (change of) liver, not elsewhere classified; E66.9 Obesity, unspecified; E11.9 Type 2 diabetes mellitus without complications; I10 Essential (primary) hypertension; F41.9 Anxiety disorder, unspecified; F32.9 Major depressive disorder, single episode, unspecified; K52.9 Noninfective gastroenteritis and colitis, unspecified; M19.90 Unspecified osteoarthritis, unspecified site; Z85.3 Personal history of malignant neoplasm of breast; Z79.82 Long term (current) use of aspirin; Z79.899 Other long term (current) drug therapy
CPT/HCPCS: 74177; 80048; 80076; 83690; 85025; 96361; 96374; 99284; J2270; Q9967

== ENCOUNTER → 2021-04-03 | Outpatient (CLI) | payer MEDICARE, OTHER ==
[~2021-04-03] MED LIST changes: +CIPR-249 PO; +FLAG500T PO; +ONDA4TAB6 PO
--- NOTE | 2021-04-03 11:53 | REP ---
INDICATION: LEFT LATERAL ANKLE PAIN. COMPARISON: None. TECHNIQUE: Four views FINDINGS: There are 3 metallic radiodensities identified 2 in the distal fibula and 1 in the distal talus. The exact nature of these radiodensities is uncertain since I have no priors for comparison or operative report to review. They certainly appear postprocedural in nature. There is no evidence of an acute fracture. There is a tiny plantar calcaneal heel spur. IMPRESSION: As above. <Electronically signed by Luis Dailey > 04/03/21 [id number]
== END ==
LOC: M CLY 11:24
PROVIDERS: ATTEND Family Medicine
DX: M77.32 Calcaneal spur, left foot (principal); M25.572 Pain in left ankle and joints of left foot
CPT/HCPCS: 73610; G0463

== ENCOUNTER → 2021-06-04 | Outpatient (REF) | payer MEDICARE, OTHER ==
[2021-06-04 12:23] LABS: BLOOD UREA NITROGEN 13 MG/DL (7-18); CALCIUM LEVEL 9.1 MG/DL (8.8-10.2); CARBON DIOXIDE LEVEL 28 MEQ/L (21-32); CHLORIDE LEVEL 104 MEQ/L (98-107); CREATININE FOR GFR 0.73 MG/DL (0.55-1.30); GLOMERULAR FILTRATION RATE > 60.0 (>45); GLUCOSE, FASTING 203 MG/DL (70-100); POTASSIUM SERUM 3.9 MEQ/L (3.5-5.1); SODIUM LEVEL 138 MEQ/L (136-145)
[2021-06-04 16:32] LABS: HEMOGLOBIN A1c 8.3 %
== END ==
LOC: M SFHCCLAY 09:28
PROVIDERS: ATTEND Family Medicine
DX: E11.29 Type 2 diabetes mellitus with other diabetic kidney complication (principal)

== ENCOUNTER → 2021-07-16 | Outpatient (REF) | LOC: M LABSMTC 10:11 | PROVIDERS: ATTEND Pediatrics | DX: Z20.822 Contact with and (suspected) exposure to COVID-19 (principal) ==

== ENCOUNTER → 2023-04-10 | Outpatient (CLI) | payer MEDICARE, OTHER | LOC: M CLY 09:11 | PROVIDERS: ATTEND Nurse Practitioner Family | DX: M25.571 Pain in right ankle and joints of right foot (principal); M19.071 Primary osteoarthritis, right ankle and foot; M77.31 Calcaneal spur, right foot ==

== ENCOUNTER → 2023-06-24 | Outpatient (REF) | payer MEDICARE, OTHER ==
[2023-06-24 17:30] LABS: BASO % 0.2 % (0.0-1.0); EOS # 0.1 10^3/uL (0.0-0.5); EOS % 2.1 % (0.0-3.0); HEMATOCRIT 40.9 % (36.0-47.0); HEMOGLOBIN 13.4 g/dl (12.0-15.5); LYMPH % 20.8 % (24.0-44.0); MEAN CORPUSCULAR HEMOGLOBIN 28.6 pg (27.0-33.0); MEAN CORPUSCULAR HGB CONC 32.8 g/dl (32.0-36.5); MEAN CORPUSCULAR VOLUME 87.4 fl (80.0-96.0); MONO # 0.6 10^3/uL (0.0-0.8); MONO % 13.1 % (2.0-8.0); NEUTROPHILS # 3.1 10^3/uL (1.5-8.5); NEUTROPHILS % 63.6 % (36.0-66.0); PLATELET COUNT, AUTOMATED 228 10^3/uL (150-450); RED BLOOD COUNT 4.68 10^6/uL (4.00-5.40); WHITE BLOOD COUNT 4.8 10^3/uL (4.0-10.0)
[2023-06-24 17:55] LABS: ALKALINE PHOSPHATASE 76 U/L (46-116); ALT/SGPT 29 U/L (7.0-40); AST/SGOT 17 U/L (<34); BILIRUBIN,TOTAL 0.3 MG/DL (0.3-1.2); BLOOD UREA NITROGEN 14 MG/DL (9-23); CALCIUM LEVEL 9.5 MG/DL (8.3-10.6); CARBON DIOXIDE LEVEL 28 MMOL/L (20-31); CHLORIDE LEVEL 102 MMOL/L (98-107); CREATININE FOR GFR 0.68 MG/DL (0.55-1.30); GLOMERULAR FILTRATION RATE > 60.0 (>45); GLUCOSE, FASTING 366 MG/DL (74-106); POTASSIUM SERUM 4.5 MMOL/L (3.5-5.1); SODIUM LEVEL 138 MMOL/L (136-145); TOTAL PROTEIN 6.9 G/DL (5.7-8.2)
== END ==
LOC: M SFHCCLAY 10:41
PROVIDERS: ATTEND Nurse Practitioner Family
DX: R19.7 Diarrhea, unspecified (principal)

== ENCOUNTER → 2023-08-28 | Outpatient (REF) | payer MEDICARE, OTHER ==
[2023-08-28 17:49] LABS: BASO % 0.6 % (0.0-1.0); EOS # 0.1 10^3/uL (0.0-0.5); EOS % 1.3 % (0.0-3.0); HEMATOCRIT 41.1 % (36.0-47.0); HEMOGLOBIN 13.5 g/dl (12.0-15.5); MEAN CORPUSCULAR HEMOGLOBIN 28.7 pg (27.0-33.0); MEAN CORPUSCULAR HGB CONC 32.8 g/dl (32.0-36.5); MEAN CORPUSCULAR VOLUME 87.3 fl (80.0-96.0); MONO # 0.6 10^3/uL (0.0-0.8); MONO % 10.5 % (2.0-8.0); NEUTROPHILS # 3.6 10^3/uL (1.5-8.5); NEUTROPHILS % 68.4 % (36.0-66.0); PLATELET COUNT, AUTOMATED 255 10^3/uL (150-450); RED BLOOD COUNT 4.71 10^6/uL (4.00-5.40); WHITE BLOOD COUNT 5.3 10^3/uL (4.0-10.0)
[2023-08-28 17:52] LABS: HEMOGLOBIN A1c 10.6 % (4.0-6.0)
[2023-08-28 18:27] LABS: ALBUMIN 4.1 G/DL (3.2-5.2); ALKALINE PHOSPHATASE 81 U/L (46-116); ALT/SGPT 31 U/L (7.0-40); AST/SGOT 22 U/L (<34); BILIRUBIN,TOTAL 0.4 MG/DL (0.3-1.2); BLOOD UREA NITROGEN 15 MG/DL (9-23); CALCIUM LEVEL 9.7 MG/DL (8.3-10.6); CARBON DIOXIDE LEVEL 27 MMOL/L (20-31); CHLORIDE LEVEL 102 MMOL/L (98-107); CHOLESTEROL LEVEL 190 MG/DL (<200); CHOLESTEROL RISK RATIO 4.72 (<5); CREATININE FOR GFR 0.68 MG/DL (0.55-1.30); GLOMERULAR FILTRATION RATE > 60.0 (>39); GLUCOSE, FASTING 454 MG/DL (74-106); HDL CHOLESTEROL 40.2 MG/DL (>40); NON-HDL-C 149.8 MG/DL; POTASSIUM SERUM 4.3 MMOL/L (3.5-5.1); SODIUM LEVEL 134 MMOL/L (136-145); TOTAL PROTEIN 6.9 G/DL (5.7-8.2); TRIGLYCERIDES LEVEL 542 MG/DL (<150)
== END ==
LOC: M SFHCCLAY 12:01
PROVIDERS: ATTEND Nurse Practitioner Family
DX: F41.9 Anxiety disorder, unspecified (principal); E78.5 Hyperlipidemia, unspecified; I69.30 Unspecified sequelae of cerebral infarction; K55.9 Vascular disorder of intestine, unspecified; C50.912 Malignant neoplasm of unspecified site of left female breast; E11.9 Type 2 diabetes mellitus without complications; G25.81 Restless legs syndrome

== ENCOUNTER → 2023-09-24 | Outpatient (CLI) | payer MEDICARE, OTHER | LOC: M PLAIMG 11:53 | PROVIDERS: ATTEND Podiatrist Foot & Ankle Surgery | DX: M25.572 Pain in left ankle and joints of left foot (principal); Z98.890 Other specified postprocedural states ==

== ENCOUNTER → 2023-10-15 | Outpatient (REF) | payer MEDICARE, OTHER ==
[~2023-10-15] MED LIST changes: +JARD1TAB PO; +METF750T36 PO; +PRAM0.5T4 PO; +ROSU20TA61 PO; +VENL75CA47 PO
[2023-10-15 18:15] LABS: HEMOGLOBIN A1c 10.4 % (4.0-6.0)
[2023-10-15 18:26] LABS: ALBUMIN 4.2 G/DL (3.2-5.2); ALKALINE PHOSPHATASE 81 U/L (46-116); ALT/SGPT 31 U/L (7.0-40); AST/SGOT 29 U/L (<34); BILIRUBIN,TOTAL 0.3 MG/DL (0.3-1.2); BLOOD UREA NITROGEN 15 MG/DL (9-23); CALCIUM LEVEL 9.2 MG/DL (8.3-10.6); CARBON DIOXIDE LEVEL 29 MMOL/L (20-31); CHLORIDE LEVEL 104 MMOL/L (98-107); CHOLESTEROL LEVEL 165 MG/DL (<200); CHOLESTEROL RISK RATIO 4.91 (<5); CREATININE FOR GFR 0.56 MG/DL (0.55-1.30); GLOMERULAR FILTRATION RATE > 60.0 (>39); GLUCOSE, FASTING 271 MG/DL (74-106); HDL CHOLESTEROL 33.6 MG/DL (>40); NON-HDL-C 131.4 MG/DL; POTASSIUM SERUM 4.1 MMOL/L (3.5-5.1); SODIUM LEVEL 138 MMOL/L (136-145); TOTAL PROTEIN 7.1 G/DL (5.7-8.2); TRIGLYCERIDES LEVEL 501 MG/DL (<150)
== END ==
LOC: M SFHCCLAY 13:08
PROVIDERS: ATTEND Nurse Practitioner Family
DX: Z01.818 Encounter for other preprocedural examination (principal); E11.9 Type 2 diabetes mellitus without complications; E78.5 Hyperlipidemia, unspecified

== ENCOUNTER → 2023-10-15 | Outpatient (REF) | payer MEDICARE, OTHER ==
[2023-10-15 17:56] LABS: HEMATOCRIT 42.7 % (36.0-47.0); HEMOGLOBIN 14.1 g/dl (12.0-15.5); MEAN CORPUSCULAR HEMOGLOBIN 28.6 pg (27.0-33.0); MEAN CORPUSCULAR VOLUME 86.6 fl (80.0-96.0); PLATELET COUNT, AUTOMATED 286 10^3/uL (150-450); RED BLOOD COUNT 4.93 10^6/uL (4.00-5.40); WHITE BLOOD COUNT 4.9 10^3/uL (4.0-10.0)
[2023-10-15 18:24] LABS: BLOOD UREA NITROGEN 15 MG/DL (9-23); CALCIUM LEVEL 9.7 MG/DL (8.3-10.6); CARBON DIOXIDE LEVEL 28 MMOL/L (20-31); CHLORIDE LEVEL 102 MMOL/L (98-107); CREATININE FOR GFR 0.56 MG/DL (0.55-1.30); GLOMERULAR FILTRATION RATE > 60.0 (>39); GLUCOSE, FASTING 274 MG/DL (74-106); POTASSIUM SERUM 4.1 MMOL/L (3.5-5.1); SODIUM LEVEL 136 MMOL/L (136-145)
== END ==
LOC: M LABDRAWC 17:20
PROVIDERS: ATTEND Podiatrist Foot & Ankle Surgery
DX: Z01.818 Encounter for other preprocedural examination (principal)

== ENCOUNTER 2023-10-16 08:28 | Day surgery (SDC) | payer MEDICARE, OTHER ==
[~2023-10-16] VITALS: Ht 162.6 cm; Wt 68.8 kg
[2023-10-16] MEDS ORDERED: GLUCAGON INJ 1MG VIAL SC PRN (08:35)
[2023-10-16] MEDS ORDERED: DEXTROSE 50% 50ML SYRINGE IV PRN (08:35)
[2023-10-16] MEDS ORDERED: GLUCOSE 4GM CHEW TABLET PO PRN (08:35)
[2023-10-16] MEDS ORDERED: ONDANSETRON 4MG 2ML VIAL As Ordered ONE (09:12)
[2023-10-16] MEDS ORDERED: LIDOCAINE 2% 100MG/5ML SDV (FOR ANES.) As Ordered ONE (09:12)
[2023-10-16] MEDS ORDERED: propofoL 200 MG/20 ML VIAL As Ordered ONE (09:12)
[2023-10-16] MEDS ORDERED: KETOROLAC 60MG 2ML VIAL As Ordered ONE (09:13)
[2023-10-16] MEDS: LR 1,000 ML IV SCH (09:25)
[2023-10-16] MEDS: INSULIN LISPRO (NovoLOG) PER UNIT SC PRN (09:30)
[2023-10-16] MEDS ORDERED: MIDAZOLAM INJ 2MG/2ML VIAL As Ordered ONE (09:39)
[2023-10-16] MEDS: ceFAZolin SOD 2 GM in IV 1 EA IV ONE (09:57)
[2023-10-16] MEDS: INSULIN LISPRO (NovoLOG) PER UNIT As Ordered ONE (10:40)
[2023-10-16] MEDS: LIDOCAINE 1% MDV 20ML VIAL As Ordered ONE (10:55)
[2023-10-16 12:30] VITALS: BP 125/63; TEMP 97.6; O2SAT 98
== END 2023-10-16 12:31 | disposition home or self-care (01) ==
LOC: M SDC 08:28
PROVIDERS: ATTEND Podiatrist Foot & Ankle Surgery
DX: M25.572 Pain in left ankle and joints of left foot (principal); M25.372 Other instability, left ankle; I10 Essential (primary) hypertension; E11.9 Type 2 diabetes mellitus without complications; K57.92 Diverticulitis of intestine, part unspecified, without perforation or abscess without bleeding; Z85.07 Personal history of malignant neoplasm of pancreas; Z85.09 Personal history of malignant neoplasm of other digestive organs; Z85.3 Personal history of malignant neoplasm of breast; Z92.3 Personal history of irradiation; Z92.21 Personal history of antineoplastic chemotherapy; F32.A Depression, unspecified; Z79.84 Long term (current) use of oral hypoglycemic drugs; Z79.82 Long term (current) use of aspirin; Z79.899 Other long term (current) drug therapy; Z86.73 Personal history of transient ischemic attack (TIA), and cerebral infarction without residual deficits
CPT/HCPCS: 27698; 97116; 97530; C1713; J0665; J0690; J1815; J1885; J2250; J2405

== ENCOUNTER → 2023-12-24 | Outpatient (REF) | payer MEDICARE, OTHER ==
[2023-12-24 18:19] LABS: HEMOGLOBIN A1c 8.3 % (4.0-6.0)
[2023-12-24 18:29] LABS: ALBUMIN 4.2 G/DL (3.2-5.2); ALKALINE PHOSPHATASE 66 U/L (46-116); ALT/SGPT 24 U/L (7.0-40); AST/SGOT 17 U/L (<34); BILIRUBIN,TOTAL 0.3 MG/DL (0.3-1.2); BLOOD UREA NITROGEN 15 MG/DL (9-23); CALCIUM LEVEL 9.8 MG/DL (8.3-10.6); CARBON DIOXIDE LEVEL 26 MMOL/L (20-31); CHLORIDE LEVEL 108 MMOL/L (98-107); CHOLESTEROL LEVEL 186 MG/DL (<200); CHOLESTEROL RISK RATIO 4.68 (<5); GLOMERULAR FILTRATION RATE > 60.0 (>39); GLUCOSE, FASTING 185 MG/DL (74-106); HDL CHOLESTEROL 39.7 MG/DL (>40); NON-HDL-C 146.3 MG/DL; POTASSIUM SERUM 4.5 MMOL/L (3.5-5.1); SODIUM LEVEL 141 MMOL/L (136-145); TOTAL PROTEIN 6.9 G/DL (5.7-8.2); TRIGLYCERIDES LEVEL 476 MG/DL (<150)
== END ==
LOC: M SFHCCLAY 09:24
PROVIDERS: ATTEND Nurse Practitioner Family
DX: E11.9 Type 2 diabetes mellitus without complications (principal); E78.5 Hyperlipidemia, unspecified

== ENCOUNTER → 2024-03-09 | Outpatient (CLI) | payer MEDICARE, OTHER ==
[~2024-03-09] MED LIST changes: +ONDA-282 PO; -ONDA4TAB6 PO
== END ==
LOC: M WHC 10:38
PROVIDERS: ATTEND Specialist
DX: Z85.3 Personal history of malignant neoplasm of breast (principal); Z79.899 Other long term (current) drug therapy; M85.89 Other specified disorders of bone density and structure, multiple sites

== ENCOUNTER → 2024-06-02 | Outpatient (REF) | payer MEDICARE, OTHER ==
[~2024-06-02] MED LIST changes: +CALC1TAB42 PO; -ROSU20TA61 PO; +ROSU20TA86 PO
[2024-06-02 18:01] LABS: ALBUMIN 4.4 G/DL (3.2-5.2); ALKALINE PHOSPHATASE 62 U/L (46-116); ALT/SGPT 15 U/L (7.0-40); AST/SGOT 9 U/L (<34); BILIRUBIN,TOTAL 0.4 MG/DL (0.3-1.2); BLOOD UREA NITROGEN 15 MG/DL (9-23); CALCIUM LEVEL 10.5 MG/DL (8.3-10.6); CARBON DIOXIDE LEVEL 27 MMOL/L (20-31); CHLORIDE LEVEL 107 MMOL/L (98-107); CREATININE FOR GFR 0.54 MG/DL (0.55-1.30); GLOMERULAR FILTRATION RATE > 60.0 (>39); GLUCOSE, FASTING 166 MG/DL (74-106); POTASSIUM SERUM 3.9 MMOL/L (3.5-5.1); SODIUM LEVEL 139 MMOL/L (136-145); TOTAL PROTEIN 7.3 G/DL (5.7-8.2)
[2024-06-02 18:39] LABS: BASO % 0.3 % (0.0-1.0); EOS # 0.1 10^3/uL (0.0-0.5); EOS % 1.7 % (0.0-3.0); HEMATOCRIT 43.5 % (36.0-47.0); HEMOGLOBIN 14.2 g/dl (12.0-15.5); LYMPH # 1.5 10^3/uL (1.5-5.0); LYMPH % 25.9 % (24.0-44.0); MEAN CORPUSCULAR HEMOGLOBIN 28.2 pg (27.0-33.0); MEAN CORPUSCULAR HGB CONC 32.6 g/dl (32.0-36.5); MEAN CORPUSCULAR VOLUME 86.3 fl (80.0-96.0); MONO # 0.7 10^3/uL (0.0-0.8); MONO % 11.1 % (2.0-8.0); NEUTROPHILS # 3.6 10^3/uL (1.5-8.5); NEUTROPHILS % 60.5 % (36.0-66.0); PLATELET COUNT, AUTOMATED 271 10^3/uL (150-450); RED BLOOD COUNT 5.04 10^6/uL (4.00-5.40)
== END ==
LOC: M LABDRAWC 17:12
PROVIDERS: ATTEND Student in an Organized Health Care Education/Training Program
DX: C50.919 Malignant neoplasm of unspecified site of unspecified female breast (principal)

== ENCOUNTER → 2024-11-11 | Outpatient (REF) | payer MEDICARE, OTHER ==
[2024-11-11 12:39] LABS: BASO % 0.6 % (0.0-1.0); EOS # 0.1 10^3/uL (0.0-0.5); EOS % 1.9 % (0.0-3.0); HEMATOCRIT 43.6 % (36.0-47.0); HEMOGLOBIN 14.3 g/dl (12.0-15.5); LYMPH % 22.3 % (24.0-44.0); MEAN CORPUSCULAR HEMOGLOBIN 28.9 pg (27.0-33.0); MEAN CORPUSCULAR HGB CONC 32.8 g/dl (32.0-36.5); MEAN CORPUSCULAR VOLUME 88.1 fl (80.0-96.0); MONO # 0.6 10^3/uL (0.0-0.8); MONO % 13.1 % (2.0-8.0); NEUTROPHILS # 2.9 10^3/uL (1.5-8.5); NEUTROPHILS % 61.9 % (36.0-66.0); PLATELET COUNT, AUTOMATED 251 10^3/uL (150-450); RED BLOOD COUNT 4.95 10^6/uL (4.00-5.40); WHITE BLOOD COUNT 4.7 10^3/uL (4.0-10.0)
[2024-11-11 18:44] LABS: ALBUMIN 4.3 G/DL (3.2-5.2); ALKALINE PHOSPHATASE 56 U/L (35-104); ALT/SGPT 19 U/L (7.0-40); AST/SGOT 13 U/L (<34); BILIRUBIN,TOTAL 0.3 MG/DL (0.3-1.2); BLOOD UREA NITROGEN 17 MG/DL (9-23); CALCIUM LEVEL 10.3 MG/DL (8.3-10.6); CARBON DIOXIDE LEVEL 26 MMOL/L (20-31); CHLORIDE LEVEL 108 MMOL/L (98-107); CREATININE FOR GFR 0.57 MG/DL (0.55-1.30); GLOMERULAR FILTRATION RATE > 60.0 (>39); GLUCOSE, FASTING 172 MG/DL (74-106); POTASSIUM SERUM 4.7 MMOL/L (3.5-5.1); SODIUM LEVEL 143 MMOL/L (136-145); TOTAL PROTEIN 7.4 G/DL (5.7-8.2)
== END ==
LOC: M LABDRAWC 12:33
PROVIDERS: ATTEND Student in an Organized Health Care Education/Training Program
DX: C21.8 Malignant neoplasm of overlapping sites of rectum, anus and anal canal (principal)

== ENCOUNTER → 2024-11-11 | Outpatient (REF) | payer MEDICARE, OTHER ==
[2024-11-11 12:58] LABS: HEMOGLOBIN A1c 8.4 % (4.0-6.0)
[2024-11-11 18:46] LABS: CHOLESTEROL RISK RATIO 4.41 (<5); HDL CHOLESTEROL 46.4 MG/DL (>40); LDL CHOLESTEROL 85.8 MG/DL (<100); NON-HDL-C 158.6 MG/DL
== END ==
LOC: M SFHCCLAY 09:56
PROVIDERS: ATTEND Nurse Practitioner Family
DX: Z00.00 Encounter for general adult medical examination without abnormal findings (principal); E78.5 Hyperlipidemia, unspecified; E11.9 Type 2 diabetes mellitus without complications; F41.9 Anxiety disorder, unspecified; I69.30 Unspecified sequelae of cerebral infarction; Z85.3 Personal history of malignant neoplasm of breast